=== PATIENT | male | born 1965 | race Two or more races ===

== ENCOUNTER 2018-04-20 13:02 | Inpatient (IN) | payer OTHER ==
[2018-04-20 13:23] VITALS: BMI 25.7
--- NOTE | 2018-04-20 14:27 | HP ---
CIWA Score - CIWA Score Nausea/Vomitin Muscle Tremors: 2 Anxiety: 2 Agitation: 2 Paroxysmal Sweats: 1-Minimal Palms Moist Orientation: 0-Oriented Tacttile Disturbances: 1-Very Mild Itch/Numbness Auditory Disturbances: 1-Very Mild Visual Disturbances: 1-Very Mild Sensitivity Headache: 2-Mild CIWA-Ar Total Score: 14 Admission ROS BHS - HPI Chief Complaint: i need help to stop drinking alcohol,cocaine and heroin abused,mmtp 97 mgs/day mmtp,last medicated today Allergies/Adverse Reactions: Allergies Allergy/AdvReac Type Severity Reaction Status Date / Time No Known Drug Allergies Allergy Verified 04/20/18 13:35 History of Present Illness: this 52 years old male with alcohol .cocaine dependence,heroin abused,mmtp 97 mgs/day,last medicated today nicotine dependence schizophrenia with depression weight loss longest period of sobriety 5 years Exam Limitations: No Limitations - Ebola screening Have you traveled outside of the country in the last 21 days: No Have you had contact with anyone from an Ebola affected area: No Have you been sick,other than usual withdrawal symptoms: No Do you have a fever: No - Review of Systems Constitutional: Loss of Appetite, Malaise, Night Sweats, Changes in sleep, Weakness, Unintentional Wgt. Loss EENT: reports: Nose Congestion Respiratory: reports: No Symptoms reported Cardiac: reports: No Symptoms Reported GI: reports: Nausea, Poor Appetite, Abdominal cramping : reports: No Symptoms Reported Musculoskeletal: reports: Back Pain, Muscle Pain Integumentary: reports: Dryness Neuro: reports: Tremors Endocrine: reports: No Symptoms Reported Hematology: reports: No Symptoms Reported Psychiatric: reports: No Sypmtoms Reported, Judgement Intact, Mood/Affect Appropiate, Orientated x3, Depressed Patient History - Patient Medical History Hx Anemia: No Hx Asthma: No Hx Chronic Obstructive Pulmonary Disease (COPD): No Hx Cancer: No Hx Cardiac Disorders: No Hx Congestive Heart Failure: No Hx Hypertension: No Hx Hypercholesterolemia: No Hx Pacemaker: No HX Cerebrovascular Accident: No Hx Seizures: No Hx Dementia: No Hx Diabetes: No Hx Gastrointestinal Disorders: No Hx Liver Disease: No Hx Genitourinary Disorders: No Hx Sexually Transmitted Disorders: No Hx Renal Disease (ESRD): No Hx Thyroid Disease: No Hx Human Immunodeficiency Virus (HIV): No (last 09/05 negative) Hx Depression: Yes (diagnosed in 2011) Hx Suicide Attempt: No Hx Bipolar Disorder: No Hx Schizophrenia: Yes Other Medical History: no suicidal,no homicidal - Patient Surgical History Past Surgical History: Yes Hx Neurologic Surgery: No Hx Cataract Extraction: No Hx Cardiac Surgery: No Hx Breast Surgery: No Hx Breast Biopsy: No Hx Abdominal Surgery: Yes (henial repair at 22 y.o.right inguinal) Hx Appendectomy: No Hx Cholecystectomy: No Hx Genitourinary Surgery: No Hx Section: No Hx Orthopedic Surgery: No Anesthesia Reaction: No - PPD History Documented Results: Negative w/proof Implanted On Prior R Admission?: No PPD to be Administered?: Yes - Smoking Cessation Smoking history: Current every day smoker Have you smoked in the past 12 months: Yes Aproximately how many cigarettes per day: 3 Cigars Per Day: 0 Hx Chewing Tobacco Use: No Initiated information on smoking cessation: Yes 'Breaking Loose' booklet given: 04/20/18 - Substance & Tx. History Hx Alcohol Use: Yes Hx Substance Use: Yes Substance Use Type: Alcohol, Heroin - Substances Abused Alcohol Route: Oral Frequency: Daily Amount used: 5 30ml shot bottles of [place] Age of first use: 16 Date of Last Use: 04/20/18 Heroin Route: Injection Frequency: Daily Amount used: $40 Age of first use: 16 Date of Last Use: 04/20/18 Cocaine Route: Injection Frequency: Daily Amount used: 80$ Age of first use: 16 Date of Last Use: 04/19/18 Family Disease History - Family Disease History Family Disease History: Other: Father (dsa,alcohol,), Mother (alcohol, ) Admission Physical Exam [facility] - Vital Signs Vital Signs: Vital Signs - 24 hr 04/20/18 13:13 Temperature 97.6 F Pulse Rate 61 Respiratory 20 Rate Blood Pressure 106/70 - Physical General Appearance: Yes: Moderate Distress, Tremorous, Irritable, Sweating, Anxious HEENTM: Yes: Within Normal Limits, Normal ENT Inspection, GINA Respiratory: Yes: Lungs Clear, Normal Breath Sounds, No Respiratory Distress Neck: Yes: Within Normal Limits, Supple, Trachea in good position Breast: Yes: Within Normal Limits Cardiology: Yes: Regular Rhythm, Regular Rate, S1, S2 Abdominal: Yes: Within Normal Limits, Normal Bowel Sounds, Non Tender, Flat, Soft Genitourinary: Yes: Within Normal Limits Back: Yes: Within Normal Limits, Muscle Spasm Musculoskeletal: Yes: Back pain, Muscle Pain Extremities: Yes: Normal Range of Motion, Tremors Neurological: Yes: coat check attendant II-XII NML intact, Alert, Motor Strength 5/5 Integumentary: Yes: Dry, Track Godinez Lymphatic: Yes: Within Normal Limits - Diagnostic (1) Alcohol dependence with uncomplicated withdrawal Current Visit: Yes Status: Acute (2) Cocaine dependence Current Visit: Yes Status: Acute (3) Heroin abuse Current Visit: Yes Status: Acute (4) Methadone maintenance therapy patient Current Visit: Yes Status: Acute (5) Dehydration Current Visit: Yes Status: Acute (6) Schizophrenia Current Visit: Yes Status: Acute (7) Depression Current Visit: Yes Status: Acute (8) Nicotine dependence Current Visit: Yes Status: Chronic Cleared for Admission [facility] - Detox or Rehab [facility] Level of Care: Medically Managed Detox Regimen/Protocol: Librium [facility] Breath Alcohol Content Breath Alcohol Content: 0 Urine Drug Screen - Results Drug Screen Negative: No Urine Drug Screen Results: MARK-Cocaine, OPI-Opiates, MET-Methamphetamine, BAR- Barbiturates, BZO-Benzodiazepines, MTD-Methadone, OXY-Oxycodone, FEN-Fentanyl
[2018-04-20] MEDS ORDERED: guaiFENesin/D-METHORPHAN HB 10 ML UNIT-DOSE CUPS PO PRN (14:43)
[2018-04-20] MEDS ORDERED: IBUPROFEN 400 MG TABLET (FP) PO PRN (14:43)
[2018-04-20] MEDS ORDERED: MAGNESIUM CITRATE 300 ML BOTTLE PO PRN (14:43)
[2018-04-20] MEDS ORDERED: MAG HYDROX/AL HYDROX/SIMETH 30 ML UNIT-DOSE CUP PO PRN (14:43)
[2018-04-20] MEDS ORDERED: hydrOXYzine PAMOATE 25 MG CAPSULE (FP) PO PRN (14:43)
[2018-04-20] MEDS ORDERED: ACETAMINOPHEN 325 MG TABLET (FP) PO PRN (14:43)
[2018-04-20] MEDS ORDERED: LOPERAMIDE HCL 2 MG CAPSULE PO PRN (14:43)
[2018-04-20] MEDS ORDERED: chlordiazePOXIDE HCL 25 MG CAPSULE PO PRN (14:43)
[2018-04-20] MEDS ORDERED: MAGNESIUM HYDROX 2400MG/30ML ORAL SUSPENSION 30 ML CUP PO PRN (14:43)
[2018-04-20] MEDS ORDERED: P-EPHED 60MG/TRIPROLIDI 2.5MG TABLET PO PRN (14:43)
[2018-04-20] MEDS ORDERED: MENTHOL/PHENOL 1 EACH UD MM PRN (14:43)
[2018-04-20] MEDS: chlordiazePOXIDE HCL 25 MG CAPSULE PO SCH ×4 (17:36→23:19)
--- NOTE | 2018-04-20 17:50 | CONSULT ---
[facility] Psychiatric Consult - Data Date of interview: 04/20/18 Admission source: [facility] Identifying data: Patient is a 52 year old year old male, divorded, father of two, unemployed, residing with sister, and is supported by [facility] benefits. This is patient's first admission to detox at [facility]. Patient admitted to for alcohol, cocaine, and opiate dependence. Substance Abuse History: Smoking Cessation. Smoking history: Current every day smoker. Have you smoked in the past 12 months: Yes. Aproximately how many cigarettes per day: 3. Cigars Per Day: 0. Hx Chewing Tobacco Use: No. Initiated information on smoking cessation: Yes. 'Breaking Loose' booklet given : 04/20/18. - Substance & Tx. History. Hx Alcohol Use: Yes. Hx Substance Use : Yes. Substance Use Type: Alcohol, Heroin. - Substances Abused. Alcohol. Route: Oral. Frequency: Daily. Amount used: 5 30ml shot bottles of [place]. Age of first use: 16. Date of Last Use: 04/20/18. Heroin. Route : Injection. Frequency: Daily. Amount used: $40. Age of first use: 16. Date of Last Use: 04/20/18. Cocaine. Route: Injection. Frequency: Daily. Amount used: 80$. Age of first use: 16. Date of Last Use: 04/19/18 Medical History: right inguinal surgery at 22 years of age. Psychiatric History: Patient reports multiple psychiatric hospitalizations, most recently two years ago at a hospital in [place] after he reported severe depression and thoughts to hurts himself. Patient is also known to [facility] [place], and [facility]. [facility]. He last saw his psychiatrist three months ago. He reports taking abilify 10mg and zoloft 50mg daily. Patient self reports a diagnosis of schizophrenia, bipolar type. He reports one suicide attempt approximately 35 years ago by hanging. At present, patient reports feeling fine and is requesting to restart abilify and zoloft. No psychosis noted. Patient is currently on methadone maintenance of 95mg daily. Physical/Sexual Abuse/Trauma History: denies. Mental Status Exam - Mental Status Exam Alert and Oriented to: Time, Place, Person Cognitive Function: Good Patient Appearance: Well Groomed Mood: Hopeful, Euthymic Affect: Appropriate Patient Behavior: Appropriate, Cooperative Speech Pattern: Clear, Appropriate Voice Loudness: Normal Thought Process: Intact, Goal Oriented Thought Disorder: Not Present Hallucinations: Denies Suicidal Ideation: Denies Homicidal Ideation: Denies Insight/Judgement: Poor Sleep: Fair Appetite: Fair Muscle strength/Tone: Normal Gait/Station: Normal Psychiatric Findings - Problem List ([place] 1, 2,3) (1) Alcohol dependence with uncomplicated withdrawal Current Visit: Yes Status: Acute (2) Cocaine dependence Current Visit: Yes Status: Acute (3) Methadone maintenance therapy patient Current Visit: Yes Status: Acute (4) Substance induced mood disorder Current Visit: Yes Status: Acute (5) Nicotine dependence Current Visit: Yes Status: Chronic (6) Schizoaffective disorder Current Visit: Yes Status: Suspected - Initial Treatment Plan Initial Treatment Plan: Psychoeducation provided. Detoxification in progress. Will order Abilify 10mg + Celexa 20mg daily. Benefits and side effects discussed. Verbal consent given.
[2018-04-20 19:26] LABS: URINE APPEARANCE TURBID; URINE BILIRUBIN NEGATIVE (<2.0 mg/dL); URINE COLOR YELLOW; URINE GLUCOSE (UA) NEGATIVE (NEGATIVE); URINE KETONE NEGATIVE (NEGATIVE); URINE LEUK ESTERASE NEGATIVE (NEGATIVE); URINE NITRITE NEGATIVE (NEGATIVE); URINE PROTEIN 1+ (NEGATIVE)
[2018-04-20 19:30] LABS: URINE MUCUS MANY; YEAST FEW
[2018-04-20] MEDS ORDERED: MELATONIN 5 MG TABLETS PO PRN (22:00)
[2018-04-20] MEDS: ARIPiprazole 10 MG TABLET PO SCH (23:17)
[2018-04-20] MEDS: THIAMINE HCL 100 MG TABLET (FP) PO SCH (23:17)
[2018-04-21] MEDS ORDERED: METHADONE HCL 5 MG TABLET ONE (04:47)
[2018-04-21] MEDS ORDERED: METHADONE HCL 10 MG TABLET ONE (04:47)
[2018-04-21] MEDS ORDERED: METHADONE HCL 40 MG DISPERSABLE TABLET ONE (04:47)
[2018-04-21] MEDS ORDERED: METHADONE HCL 40 MG DISPERSABLE TABLET PO SCH (06:00)
[2018-04-21] MEDS ORDERED: METHADONE 80 MG, METHADONE 10 MG, METHADONE 5 MG PO SCH (06:00)
[2018-04-21] MEDS: chlordiazePOXIDE HCL 25 MG CAPSULE PO SCH ×2 (07:34→10:33)
[2018-04-21] MEDS ORDERED: SERTRALINE HCL 50 MG TABLET (FP) PO SCH (10:00)
[2018-04-21 10:23] LABS: ALBUMIN 3.9 g/dl (3.4-5.0); ALK PHOS 75 U/L (45-117); ANION GAP 9 MMOL/L (8-16); BILIRUBIN,TOTAL 0.4 mg/dL (0.2-1); BLOOD UREA NITROGEN 17 mg/dL (7-18); CALCIUM 8.9 mg/dL (8.5-10.1); CHLORIDE 108 mmol/L (98-107); CO2 28 mmol/L (21-32); CREATININE 1.4 mg/dL (0.55-1.3); GLUCOSE,RANDOM 107 mg/dL (74-106); HEMATOCRIT 38.8 % (35.4-49); HEMOGLOBIN 12.4 GM/dL (11.7-16.9); MCH 27.7 pg (25.7-33.7); MCHC 32.1 g/dl (32.0-35.9); MEAN CELL VOLUME 86.2 fl (80-96); MEAN PLT VOLUME 8.7 fl (7.5-11.1); PLATELET COUNT 168 K/MM3 (134-434); POTASSIUM 3.8 mmol/L (3.5-5.1); RBC 4.49 M/mm3 (4.00-5.60); RDW 13.7 % (11.9-15.9); SGOT/AST 25 U/L (15-37); SGPT/ALT 23 U/L (13-61); SODIUM 145 mmol/L (136-145); TOT PROT 7.8 g/dl (6.4-8.2); WHITE BLOOD COUNT 3.5 K/mm3 (4.0-10.0)
[2018-04-21] MEDS: PRENATAL VITAMINS W/ FOLIC ACID TABLET (FP) PO SCH (10:32)
[2018-04-21] MEDS ORDERED: diazePAM 5 MG TABLET PO PRN (10:47)
--- NOTE | 2018-04-21 10:56 | PN ---
[facility] CIWA - CIWA Score Nausea/Vomitin-No Nausea/No Vomiting Muscle Tremors: 3 Anxiety: 3 Agitation: 3 Paroxysmal Sweats: 3 Orientation: 0-Oriented Tacttile Disturbances: 0-None Auditory Disturbances: 0-None Visual Disturbances: 0-None Headache: 0-None Present CIWA-Ar Total Score: 12 BHS Progress Note (SOAP) Subjective: agitation sweats I need my methadone switched to 10am I want the libirium switched to valium instead. The librium is too bitter and making my stomach ache Objective: 04/21/18 10:51 Vital Signs Temperature 98.2 F 04/21/18 09:04 Pulse Rate 62 04/21/18 09:04 Respiratory Rate 16 04/21/18 09:04 Blood Pressure 117/67 04/21/18 09:04 O2 Sat by Pulse Oximetry (%) Laboratory Tests 04/20/18 04/21/18 04/21/18 15:40 06:00 06:00 WBC 3.5 L RBC 4.49 Hgb 12.4 Hct 38.8 MCV 86.2 MCH 27.7 MCHC 32.1 RDW 13.7 Plt Count 168 MPV 8.7 Sodium 145 Potassium 3.8 Chloride 108 H Carbon Dioxide 28 Anion Gap 9 BUN 17 Creatinine 1.4 H Creat Clearance w eGFR 53.01 Random Glucose 107 H Calcium 8.9 Total Bilirubin 0.4 AST 25 ALT 23 Alkaline Phosphatase 75 Total Protein 7.8 Albumin 3.9 Urine Color Yellow Urine Appearance Turbid Urine pH 5.0 Ur Specific [place] 1.035 Urine Protein 1+ H Urine Glucose (UA) Negative Urine Ketones Negative Urine Blood Negative Urine Nitrite Negative Urine Bilirubin Negative Urine Urobilinogen 2.0 Ur Leukocyte Esterase Negative Urine WBC (Auto) 105 Urine RBC (Auto) None Urine Mucus Many Urine Yeast Few aaox3 ambulating no acute distress repeat u/a Assessment: 04/21/18 10:51 withdrawal sx Plan: continue detox increase fluids valium detox regimen ordered his methadone will be given at 10am as per pt request.
[2018-04-21] MEDS ORDERED: FLU VACCINE QUAD 60 MCG/0.5 ML (MDV 18-19) IM ONE (12:00)
[2018-04-21] MEDS ORDERED: PNEUMOCOCCAL 23 VACCINE 0.5 ML VIAL IM ONE (12:00)
[2018-04-21] MEDS ORDERED: PNEUMOC 13-VAL CONJ-DIP CRM/PF 0.5 ML DISP.SYRIN IM ONE (12:00)
[2018-04-21] MEDS: diazePAM 5 MG TABLET PO SCH ×2 (14:47→22:07)
--- NOTE | 2018-04-21 15:11 | EKG ---
Test Reason : Blood Pressure : / mmHG Vent. Rate : 057 BPM Atrial Rate : 057 BPM P-R Int : 152 ms QRS Dur : 080 ms QT Int : 458 ms P-R-T Axes : 073 047 056 degrees QTc Int : 445 ms SINUS BRADYCARDIA NONSPECIFIC ST AND T WAVE ABNORMALITY ABNORMAL ECG NO PREVIOUS ECGS AVAILABLE Confirmed by BROCK HEARD, SILVIO ([id number]) on 04/21/2018 3:10:22 PM Referred By: Confirmed By:SILVIO GUTIÉRREZ MD
[2018-04-21] MEDS ORDERED: chlordiazePOXIDE HCL 25 MG CAPSULE PO SCH (17:00)
[2018-04-21] MEDS: THIAMINE HCL 100 MG TABLET (FP) PO SCH (22:06)
[2018-04-21] MEDS: ARIPiprazole 10 MG TABLET PO SCH (22:06)
[2018-04-22] MEDS ORDERED: METHADONE HCL 5 MG TABLET ONE (09:36)
[2018-04-22] MEDS ORDERED: METHADONE HCL 40 MG DISPERSABLE TABLET ONE (09:37)
[2018-04-22] MEDS ORDERED: METHADONE HCL 10 MG TABLET ONE (09:37)
--- NOTE | 2018-04-22 09:56 | PN ---
[facility] CIWA - CIWA Score Nausea/Vomitin-No Nausea/No Vomiting Muscle Tremors: 3 Anxiety: 2 Agitation: 2 Paroxysmal Sweats: 3 Orientation: 0-Oriented Tacttile Disturbances: 0-None Auditory Disturbances: 0-None Visual Disturbances: 0-None Headache: 0-None Present CIWA-Ar Total Score: 10 S Progress Note (SOAP) Subjective: sweats irritable constipation Objective: 04/22/18 09:56 Vital Signs Temperature 98.2 F 04/22/18 09:21 Pulse Rate 55 L 04/22/18 09:21 Respiratory Rate 18 04/22/18 09:21 Blood Pressure 108/69 04/22/18 09:21 O2 Sat by Pulse Oximetry (%) Laboratory Tests 04/20/18 04/21/18 04/21/18 15:40 06:00 06:00 WBC 3.5 L RBC 4.49 Hgb 12.4 Hct 38.8 MCV 86.2 MCH 27.7 MCHC 32.1 RDW 13.7 Plt Count 168 MPV 8.7 Sodium 145 Potassium 3.8 Chloride 108 H Carbon Dioxide 28 Anion Gap 9 BUN 17 Creatinine 1.4 H Creat Clearance w eGFR 53.01 Random Glucose 107 H Calcium 8.9 Total Bilirubin 0.4 AST 25 ALT 23 Alkaline Phosphatase 75 Total Protein 7.8 Albumin 3.9 Urine Color Yellow Urine Appearance Turbid Urine pH 5.0 Ur Specific [place] 1.035 Urine Protein 1+ H Urine Glucose (UA) Negative Urine Ketones Negative Urine Blood Negative Urine Nitrite Negative Urine Bilirubin Negative Urine Urobilinogen 2.0 Ur Leukocyte Esterase Negative Urine WBC (Auto) 105 Urine RBC (Auto) None Urine Mucus Many Urine Yeast Few RPR Titer 04/21/18 06:00 WBC RBC Hgb Hct MCV MCH MCHC RDW Plt Count MPV Sodium Potassium Chloride Carbon Dioxide Anion Gap BUN Creatinine Creat Clearance w eGFR Random Glucose Calcium Total Bilirubin AST ALT Alkaline Phosphatase Total Protein Albumin Urine Color Urine Appearance Urine pH Ur Specific [place] Urine Protein Urine Glucose (UA) Urine Ketones Urine Blood Urine Nitrite Urine Bilirubin Urine Urobilinogen Ur Leukocyte Esterase Urine WBC (Auto) Urine RBC (Auto) Urine Mucus Urine Yeast RPR Titer Nonreactive aaoc3 ambulating no acute distress Assessment: 04/22/18 09:56 withdrawal sx Plan: continue detox increase fluids
[2018-04-22] MEDS: CITALOPRAM HYDROBROMIDE 20 MG TABLET (FP) PO SCH (10:13)
[2018-04-22] MEDS: diazePAM 5 MG TABLET PO SCH ×2 (10:13→22:16)
[2018-04-22] MEDS: PRENATAL VITAMINS W/ FOLIC ACID TABLET (FP) PO SCH (10:13)
[2018-04-22] MEDS: METHADONE 80 MG, METHADONE 10 MG, METHADONE 5 MG PO SCH (10:14)
[2018-04-22] MEDS ORDERED: chlordiazePOXIDE 5 MG CAPSULE PO SCH (17:00)
[2018-04-22] MEDS: ARIPiprazole 10 MG TABLET PO SCH (22:16)
[2018-04-22] MEDS: THIAMINE HCL 100 MG TABLET (FP) PO SCH (22:16)
[2018-04-23] MEDS ORDERED: METHADONE HCL 5 MG TABLET ONE (09:01)
[2018-04-23] MEDS ORDERED: METHADONE HCL 10 MG TABLET ONE (09:02)
[2018-04-23] MEDS ORDERED: METHADONE HCL 40 MG DISPERSABLE TABLET ONE (09:02)
[2018-04-23] MEDS: diazePAM 5 MG TABLET PO SCH ×2 (10:15→22:22)
[2018-04-23] MEDS: METHADONE 80 MG, METHADONE 10 MG, METHADONE 5 MG PO SCH (10:15)
[2018-04-23] MEDS: PRENATAL VITAMINS W/ FOLIC ACID TABLET (FP) PO SCH (10:15)
[2018-04-23] MEDS: CITALOPRAM HYDROBROMIDE 20 MG TABLET (FP) PO SCH (10:15)
--- NOTE | 2018-04-23 12:15 | PN ---
[facility] Progress Note Note: PATIENT CONTINUES WITH DETOX REGIMEN. STATES HE FEELS OK. C/O INTERRUPTED SLEEP. Vital Signs Temperature 97.9 F 04/23/18 09:41 Pulse Rate 72 04/23/18 09:41 Respiratory Rate 18 04/23/18 09:41 Blood Pressure 108/67 04/23/18 09:41 O2 Sat by Pulse Oximetry (%) Laboratory Tests 04/20/18 04/21/18 04/21/18 15:40 06:00 06:00 WBC 3.5 L RBC 4.49 Hgb 12.4 Hct 38.8 MCV 86.2 MCH 27.7 MCHC 32.1 RDW 13.7 Plt Count 168 MPV 8.7 Sodium 145 Potassium 3.8 Chloride 108 H Carbon Dioxide 28 Anion Gap 9 BUN 17 Creatinine 1.4 H Creat Clearance w eGFR 53.01 Random Glucose 107 H Calcium 8.9 Total Bilirubin 0.4 AST 25 ALT 23 Alkaline Phosphatase 75 Total Protein 7.8 Albumin 3.9 Urine Color Yellow Urine Appearance Turbid Urine pH 5.0 Ur Specific [place] 1.035 Urine Protein 1+ H Urine Glucose (UA) Negative Urine Ketones Negative Urine Blood Negative Urine Nitrite Negative Urine Bilirubin Negative Urine Urobilinogen 2.0 Ur Leukocyte Esterase Negative Urine WBC (Auto) 105 Urine RBC (Auto) None Urine Mucus Many Urine Yeast Few RPR Titer 04/21/18 06:00 WBC RBC Hgb Hct MCV MCH MCHC RDW Plt Count MPV Sodium Potassium Chloride Carbon Dioxide Anion Gap BUN Creatinine Creat Clearance w eGFR Random Glucose Calcium Total Bilirubin AST ALT Alkaline Phosphatase Total Protein Albumin Urine Color Urine Appearance Urine pH Ur Specific [place] Urine Protein Urine Glucose (UA) Urine Ketones Urine Blood Urine Nitrite Urine Bilirubin Urine Urobilinogen Ur Leukocyte Esterase Urine WBC (Auto) Urine RBC (Auto) Urine Mucus Urine Yeast RPR Titer Nonreactive SKIN WARM AND DRY ALERT AND ORIENTED X 3 AMB AD YASMANI EXT FULL ROM A/P WITHDRAWAL SX CONTINUE TO DETOX CONTINUE TO MONITOR CLINICALLY ENCOURAGE ORAL FLUIDS
[2018-04-23] MEDS ORDERED: chlordiazePOXIDE HCL 10 MG CAPSULE PO SCH (17:00)
[2018-04-23] MEDS: ARIPiprazole 10 MG TABLET PO SCH (22:22)
[2018-04-23] MEDS: THIAMINE HCL 100 MG TABLET (FP) PO SCH (22:22)
[2018-04-24] MEDS ORDERED: METHADONE HCL 5 MG TABLET ONE (09:04)
[2018-04-24] MEDS ORDERED: METHADONE HCL 40 MG DISPERSABLE TABLET ONE (09:04)
[2018-04-24] MEDS ORDERED: METHADONE HCL 10 MG TABLET ONE (09:05)
[2018-04-24] MEDS ORDERED: diazePAM 5 MG TABLET PO SCH (10:00)
[2018-04-24] MEDS: METHADONE 80 MG, METHADONE 10 MG, METHADONE 5 MG PO SCH (10:04)
[2018-04-24] MEDS: PRENATAL VITAMINS W/ FOLIC ACID TABLET (FP) PO SCH (10:05)
[2018-04-24] MEDS: CITALOPRAM HYDROBROMIDE 20 MG TABLET (FP) PO SCH (10:05)
--- NOTE | 2018-04-24 11:26 | HP ---
[facility]IN[facility] Rehab Assess/Revision - Admission History Admitted to Rehab from: [facility] [place] Date of Admission to Rehab: 04/24/18 - Vital signs Vital Signs: Vital Signs Period Temp Pulse Resp BP Sys/Alexander Pulse Ox Last 24 Hr 97.7 F-98.2 F 53-71 16-18 100-119/58-71 - Findings Detox History & Physical reviewed: Yes Concur with findings: Yes Comments/Additional Findings: transferred from detox to rehab admission as per [facility] Inpatient Rehab Admission - Initial Determination Are CD services needed?: Yes Free of communicable disease: Yes Not in need of hospitalization: Yes - Rehab Admission Criteria Previous failed treatment: Yes Poor recovery environment: Yes Comorbidities: Yes Lacks judgement: No Patient is meeting Inpatient Rehab admission criteria:: Yes
--- NOTE | 2018-04-24 11:29 | PN ---
[facility] Progress Note (SOAP) Subjective: 52 years old male admitted on 04/20/18 for alcohol withdrawal sx completed detox regimen tolearated well denies alcohol withdrawal sx alert oriented x 3 no acute distress aftercare [facility] Objective: 04/24/18 11:28 Vital Signs Temperature 97.9 F 04/24/18 09:34 Pulse Rate 68 04/24/18 09:34 Respiratory Rate 16 04/24/18 09:34 Blood Pressure 103/71 04/24/18 09:34 O2 Sat by Pulse Oximetry (%) Laboratory Last Values WBC 3.5 K/mm3 (4.0-10.0) L 04/21/18 06:00 RBC 4.49 M/mm3 (4.00-5.60) 04/21/18 06:00 Hgb 12.4 GM/dL (11.7-16.9) 04/21/18 06:00 Hct 38.8 % (35.4-49) 04/21/18 06:00 MCV 86.2 fl (80-96) 04/21/18 06:00 MCH 27.7 pg (25.7-33.7) 04/21/18 06:00 MCHC 32.1 g/dl (32.0-35.9) 04/21/18 06:00 RDW 13.7 % (11.9-15.9) 04/21/18 06:00 Plt Count 168 K/MM3 (134-434) 04/21/18 06:00 MPV 8.7 fl (7.5-11.1) 04/21/18 06:00 Sodium 145 mmol/L (136-145) 04/21/18 06:00 Potassium 3.8 mmol/L (3.5-5.1) 04/21/18 06:00 Chloride 108 mmol/L (98-107) H 04/21/18 06:00 Carbon Dioxide 28 mmol/L (21-32) 04/21/18 06:00 Anion Gap 9 MMOL/L (8-16) 04/21/18 06:00 BUN 17 mg/dL (7-18) 04/21/18 06:00 Creatinine 1.4 mg/dL (0.55-1.3) H 04/21/18 06:00 Creat Clearance w eGFR 53.01 (>60) 04/21/18 06:00 Random Glucose 107 mg/dL (74-106) H 04/21/18 06:00 Calcium 8.9 mg/dL (8.5-10.1) 04/21/18 06:00 Total Bilirubin 0.4 mg/dL (0.2-1) 04/21/18 06:00 AST 25 U/L (15-37) 04/21/18 06:00 ALT 23 U/L (13-61) 04/21/18 06:00 Alkaline Phosphatase 75 U/L (45-117) 04/21/18 06:00 Total Protein 7.8 g/dl (6.4-8.2) 04/21/18 06:00 Albumin 3.9 g/dl (3.4-5.0) 04/21/18 06:00 Urine Color Yellow 04/20/18 15:40 Urine Appearance Turbid 04/20/18 15:40 Urine pH 5.0 (5.0-8.0) 04/20/18 15:40 Ur Specific [place] 1.035 (1.010-1.035) 04/20/18 15:40 Urine Protein 1+ (NEGATIVE) H 04/20/18 15:40 Urine Glucose (UA) Negative (NEGATIVE) 04/20/18 15:40 Urine Ketones Negative (NEGATIVE) 04/20/18 15:40 Urine Blood Negative (NEGATIVE) 04/20/18 15:40 Urine Nitrite Negative (NEGATIVE) 04/20/18 15:40 Urine Bilirubin Negative (<2.0 mg/dL) 04/20/18 15:40 Urine Urobilinogen 2.0 mg/dL (0.2-1.0) 04/20/18 15:40 Ur Leukocyte Esterase Negative (NEGATIVE) 04/20/18 15:40 Urine WBC (Auto) 105 /hpf (3-5) 04/20/18 15:40 Urine RBC (Auto) None /hpf (0-3) 04/20/18 15:40 Urine Mucus Many 04/20/18 15:40 Urine Yeast Few 04/20/18 15:40 RPR Titer Nonreactive (NONREACTIVE) 04/21/18 06:00 lab noted Assessment: 04/24/18 11:28 no alcohol withdrawal sx continue sobriety coping through [facility] Plan: transferred from detox to rehab continue addiction treatment
[2018-04-24] MEDS: ARIPiprazole 10 MG TABLET PO SCH (21:50)
[2018-04-24] MEDS: THIAMINE HCL 100 MG TABLET (FP) PO SCH (21:50)
--- NOTE | 2018-04-25 10:16 | HP ---
Psychiatrist Admission - Data Date of interview: 04/25/18 Identifying data: This is the first admission to rehabilitation floor [place] 52 years old male, , father oftwo, living with Sister's family, unemployed , on SSI with psychiatric hospitalization history, History of Schizophrenis. Patient transferred from after completeing Detox from Alcohol , Cocaine , Methadone dependence. Currently on MMTP 95mg per day. Medical History: Right Inguinal Hernia history Psychiatric History: Patient reports history of Schizophrenia with most brcent psychiatric hospitalization on 2015 at [place]. Denies suisidal, homicidal history, reports taking prior to admissiuon: Abilify 10mg poqd. Celexa 40mg po qhs Physical/Sexual Abuse/Trauma History: Weight loss history Additional Comment: Abilify 10mg poqd. Celexa 40mg po qhs Vital Signs: Vital Signs - 24 hr 04/24/18 04/25/18 04/25/18 14:01 00:30 03:30 Temperature 98.3 F Pulse Rate 69 Respiratory 16 18 18 Rate Blood Pressure 115/69 04/25/18 07:01 Temperature 98.0 F Pulse Rate 66 Respiratory 19 Rate Blood Pressure 124/69 Allergies/Adverse Reactions: Allergies Allergy/AdvReac Type Severity Reaction Status Date / Time No Known Drug Allergies Allergy Verified 04/20/18 13:35 - Substance Abuse/Tx History Hx Alcohol Use: Yes (Long history of Alcohol dependence) Hx Substance Use: Yes Substance Use Type: Alcohol, Cocaine, Opiates Hx Substance Use Treatment: Yes (Patient reports long history of Alcohol, Cocaine, Opioids dependence) Mental Status Exam - Mental Status Exam Alert and Oriented to: Place, Person Cognitive Function: Fair Patient Appearance: Well Groomed Mood: Apprehensive Affect: Appropriate Patient Behavior: Cooperative Speech Pattern: Appropriate Voice Loudness: Normal Thought Process: Goal Oriented Hallucinations: Denies Suicidal Ideation: Denies Homicidal Ideation: Denies Insight/Judgement: Fair Sleep: Difficulty falling asleep Appetite: Fair Muscle strength/Tone: Normal Gait/Station: Normal Additional Comments: Abilify 10mg poqd. Celexa 40mg po qhs Psychiatric Findings - Problem List ([place] 1, 2,3) (1) Weight loss Current Visit: Yes Status: Acute (2) Alcohol dependence with uncomplicated withdrawal Current Visit: Yes Status: Acute (3) Cocaine dependence Current Visit: Yes Status: Acute (4) Heroin abuse Current Visit: Yes Status: Acute (5) Methadone maintenance therapy patient Current Visit: Yes Status: Acute (6) Schizophrenia Current Visit: Yes Status: Acute (7) Substance induced mood disorder Current Visit: Yes Status: Acute (8) Nicotine dependence Current Visit: Yes Status: Chronic (9) Schizoaffective disorder Current Visit: Yes Status: Suspected - Initial Treatment Plan Initial Treatment Plan: Abilify 10mg poqd. Celexa 40mg po qhs
[2018-04-25] MEDS: PRENATAL VITAMINS W/ FOLIC ACID TABLET (FP) PO SCH (10:45)
[2018-04-25] MEDS ORDERED: ARIPiprazole 10 MG TABLET PO SCH (10:45)
[2018-04-25] MEDS: CITALOPRAM HYDROBROMIDE 20 MG TABLET (FP) PO SCH (10:45)
[2018-04-25] MEDS ORDERED: METHADONE HCL 5 MG TABLET ONE (10:47)
[2018-04-25] MEDS ORDERED: METHADONE HCL 10 MG TABLET ONE (10:47)
[2018-04-25] MEDS ORDERED: METHADONE HCL 40 MG DISPERSABLE TABLET ONE (10:47)
[2018-04-25] MEDS: METHADONE 80 MG, METHADONE 10 MG, METHADONE 5 MG PO SCH (10:48)
[2018-04-25] MEDS: ARIPiprazole 10 MG TABLET PO SCH (21:47)
[2018-04-25] MEDS: THIAMINE HCL 100 MG TABLET (FP) PO SCH (21:47)
[2018-04-26 06:50] VITALS: BP 143/73; PULSE 60; TEMP 97.8
[2018-04-26] MEDS: PRENATAL VITAMINS W/ FOLIC ACID TABLET (FP) PO SCH (09:47)
[2018-04-26] MEDS: CITALOPRAM HYDROBROMIDE 20 MG TABLET (FP) PO SCH (09:47)
[2018-04-26] MEDS ORDERED: METHADONE HCL 5 MG TABLET ONE (09:48)
[2018-04-26] MEDS ORDERED: METHADONE HCL 10 MG TABLET ONE (09:48)
[2018-04-26] MEDS: METHADONE 80 MG, METHADONE 10 MG, METHADONE 5 MG PO SCH (09:48)
[2018-04-26] MEDS ORDERED: METHADONE HCL 40 MG DISPERSABLE TABLET ONE (09:48)
== END 2018-04-26 11:45 | disposition left against medical advice (07) | DRG 894 ==
LOC: YASAS 13:02 → Y6N 14:34 → Y5N 04-24 13:15
PROVIDERS: ADMIT Psychiatry & Neurology Psychiatry
PROC: HZ2ZZZZ Detoxification Services for Substance Abuse Treatment (ICD-10-PCS; principal; 2018-04-20)
PROC: HZ42ZZZ Group Counseling for Substance Abuse Treatment, Cognitive-Behavioral (ICD-10-PCS; 2018-04-24)
DX: F10.230 Alcohol dependence with withdrawal, uncomplicated (principal); F11.20 Opioid dependence, uncomplicated; F14.20 Cocaine dependence, uncomplicated; F20.0 Paranoid schizophrenia; F17.210 Nicotine dependence, cigarettes, uncomplicated; F19.24 Other psychoactive substance dependence with psychoactive substance-induced mood disorder; F25.9 Schizoaffective disorder, unspecified; F32.9 Major depressive disorder, single episode, unspecified; E86.0 Dehydration
CPT/HCPCS: 36415; 80053; 81003; 81015; 85027; 86593; 87389; 90688; 90732; 93005; 93010; G0008; G0009

== ENCOUNTER 2025-03-07 13:25 | Inpatient (IN) | payer OTHER ==
[2025-03-07 13:56] VITALS: BMI 27.8
[2025-03-07] MEDS ORDERED: NALOXONE (NARCAN) HCL 4 MG/0.1 ML SPRAY NS PRN (15:08)
[2025-03-07] MEDS ORDERED: IBUPROFEN 400 MG TABLET (FP) PO PRN (15:08)
[2025-03-07] MEDS ORDERED: guaiFENesin 600 MG TABLET.ER (FP) PO PRN (15:08)
[2025-03-07] MEDS ORDERED: BISMUTH SUBSALICYLATE 524 MG/30 ML PO PRN (15:08)
[2025-03-07] MEDS ORDERED: BENZOCAINE/MENTHOL (CHLORASEPTIC ) LOZENGE MM PRN (15:08)
[2025-03-07] MEDS ORDERED: BENZONATATE 200 MG CAPSULE PO PRN (15:08)
[2025-03-07] MEDS ORDERED: ONDANSETRON *ODT* 4 MG TABLET SL PRN (15:08)
[2025-03-07] MEDS ORDERED: LOPERAMIDE HCL 2 MG CAPSULE PO PRN (15:08)
[2025-03-07] MEDS ORDERED: DICYCLOMINE HCL 10 MG CAPSULE PO PRN (15:08)
[2025-03-07] MEDS ORDERED: MAG HYDROX/AL HYDROX/SIMETH 30 ML UNIT-DOSE CUP PO PRN (15:08)
[2025-03-07] MEDS ORDERED: MAGNESIUM HYDROX 2400MG/30ML ORAL SUSPENSION 30 ML CUP PO PRN (15:08)
[2025-03-07] MEDS ORDERED: ACETAMINOPHEN 325 MG TABLET (FP) PO PRN (15:08)
[2025-03-07] MEDS ORDERED: POLYETHYLENE GLYCOL (HEALTHYLAX) 3350 17 GM PACKET PO PRN (15:08)
[2025-03-07] MEDS ORDERED: hydrOXYzine PAMOATE 25 MG CAPSULE (FP) PO PRN (15:08)
[2025-03-07] MEDS: PRENATAL VITAMINS W/ FOLIC ACID TABLET (FP) PO SCH (18:36)
[2025-03-07] MEDS ORDERED: ZOLPIDEM TARTRATE 10 MG PO SCH (22:00)
[2025-03-07] MEDS: MELATONIN 5 MG TABLETS PO SCH (22:42)
[2025-03-07] MEDS: THIAMINE 100 MG TABLET PO SCH (22:42)
[2025-03-08] MEDS ORDERED: diphenhydrAMINE HCL 25 MG CAPSULE (FP) PO SCH (10:00)
[2025-03-08] MEDS: ASPIRIN COATED 81 MG TABLET.EC PO SCH (10:05)
[2025-03-08] MEDS: HYDROCHLOROTHIAZIDE 12.5 MG CAPSULE (FP) PO SCH (10:05)
[2025-03-08] MEDS: METHOCARBAMOL 500 MG TABLET PO PRN (22:00)
[2025-03-08] MEDS: diphenhydrAMINE HCL 25 MG CAPSULE (FP) PO PRN (22:02)
[2025-03-09] MEDS: IBUPROFEN 600 MG TABLET (FP) PO PRN (02:14)
[2025-03-09 09:39] VITALS: BP 148/108; PULSE 61; RESP 16; TEMP 97.5
[2025-03-09] MEDS: VENLAFAXINE HCL 75 MG E.R. CAPSULES PO SCH (10:10)
== END 2025-03-09 10:20 | disposition home or self-care (01) | DRG 897 ==
LOC: YASAS 13:25 → Y6N 18:08
PROVIDERS: ADMIT Allergy & Immunology; ATTEND Counselor Addiction (Substance Use Disorder)
PROC: HZ2ZZZZ Detoxification Services for Substance Abuse Treatment (ICD-10-PCS; principal; 2025-03-07)
DX: F10.20 Alcohol dependence, uncomplicated (principal); F13.20 Sedative, hypnotic or anxiolytic dependence, uncomplicated; F11.20 Opioid dependence, uncomplicated; F14.20 Cocaine dependence, uncomplicated; F25.9 Schizoaffective disorder, unspecified; F39 Unspecified mood [affective] disorder; I10 Essential (primary) hypertension
CPT/HCPCS: 93005; 93010